=== PATIENT | female | born 1970 | race Caucasian/White ===

== ENCOUNTER 2017-04-27 09:03 | Emergency (ER) | payer MEDICAID ==
[~2017-04-27] VITALS: Ht 162.6 cm; Wt 95.0 kg
[~2017-04-27 09:03] MED LIST: AMO250C PO; ESOM20CA PO; LEVO125T69 PO; MOME17SP NS; ZOL50T PO
[2017-04-27 09:06] VITALS: BP 125/90
[2017-04-27] MEDS ORDERED: TETanus/Pertussis (Acell)/Diphther VAC/PF (Tdap-Adult) 0.5ml syringe IM ONE (10:15)
[2017-04-27] MEDS ORDERED: LIDOcaine 1% 30ml vial IJ ONE (10:15)
[2017-04-27] MEDS ORDERED: HYDROcodone/acetaminophen 5mg/325mg tablet PO ONE (10:20)
== END 2017-04-27 11:24 | disposition home or self-care (01) ==
LOC: ER 09:04
DX: S61.215A Laceration without foreign body of left ring finger without damage to nail, initial encounter (principal); Z79.899 Other long term (current) drug therapy; W23.0XXA Caught, crushed, jammed, or pinched between moving objects, initial encounter; Y93.89 Activity, other specified; Y92.89 Other specified places as the place of occurrence of the external cause; Y99.8 Other external cause status
CPT/HCPCS: 12001; 73140; 90471; 90715; 99284; A6255; A6449; J3490

== ENCOUNTER 2017-05-08 16:22 | Emergency (ER) | payer MEDICAID ==
[~2017-05-08] VITALS: Ht 165.1 cm; Wt 95.5 kg
[2017-05-08 17:09] VITALS: BP 145/69
== END 2017-05-08 17:11 | disposition home or self-care (01) ==
LOC: ER 16:23
DX: Z48.02 Encounter for removal of sutures (principal); Z79.899 Other long term (current) drug therapy
CPT/HCPCS: 99281

== ENCOUNTER 2019-07-22 02:53 | Emergency (ER) | payer MEDICAID ==
[~2019-07-22] VITALS: Ht 165.1 cm; Wt 75.0 kg
[~2019-07-22 02:53] MED LIST changes: +SERT-153 PO; -ZOL50T PO
[2019-07-22] MEDS ORDERED: normal saline 1000ML IV soln IVB ONE (03:00)
[2019-07-22] MEDS ORDERED: iohexol 300mg/ml 100ml inj. ONE (03:10)
[2019-07-22 03:35] LABS: BASOPHILS # (AUTO) 0.1 X10'3 (0-0.2); BASOPHILS % (AUTO) 1.2 % (0-1); EOSINOPHILS # (AUTO) 0.2 X10'3 (0-0.9); EOSINOPHILS % (AUTO) 2.2 % (0-6); HEMATOCRIT 38.6 % (35.0-45.0); HEMOGLOBIN 12.6 g/dl (12.0-16.0); LYMPHOCYTES # (AUTO) 1.9 X10'3 (1.1-4.8); MEAN CORPUSCULAR HEMOGLOBIN 30.3 PG (27.0-31.0); MEAN CORPUSCULAR HGB CONC 32.6 g/dL (33.0-36.5); MEAN PLATELET VOLUME 7.6 FL (7.4-10.4); MONOCYTES # (AUTO) 0.5 X10'3 (0-0.9); MONOCYTES % (AUTO) 6.7 % (2-12); NEUTROPHILS # (AUTO) 4.5 X10'3 (1.8-7.7); NEUTROPHILS % (AUTO) 62.9 % (42-75); PLATELET COUNT 232 X10'3 (140-440); RED BLOOD COUNT 4.15 X10'6 (4.20-5.60); WHITE BLOOD COUNT 7.1 X10'3 (4.5-11.0)
[2019-07-22 03:47] LABS: PARTIAL THROMBOPLASTIN TIME 30 SECONDS (22-32)
[2019-07-22 03:49] LABS: ALANINE AMINOTRANSFERASE 18 U/L (12-78); ALBUMIN 3.3 G/DL (3.4-5.0); ALBUMIN/GLOBULIN RATIO 0.9 (1.1-1.5); ALKALINE PHOSPHATASE 110 IU/L (46-116); ANION GAP 5 (8-16); ASPARTATE AMINO TRANSFERASE 20 U/L (10-37); BILIRUBIN,TOTAL 0.2 MG/DL (0.1-1.0); BLOOD UREA NITROGEN 22 MG/DL (7-18); BUN/CREATININE RATIO 20.2 (6.6-38.0); CALCIUM 8.3 MG/DL (8.5-10.1); CHLORIDE 107 MMOL/L (99-107); CREATININE 1.09 MG/DL (0.40-0.90); GLUCOSE 107 MG/DL (70-104); POTASSIUM 3.7 MMOL/L (3.5-5.1); SODIUM 141 MMOL/L (135-145); TOTAL CARBON DIOXIDE 29.1 MMOL/L (24-32); TOTAL PROTEIN 6.9 G/DL (6.4-8.2); eGFR 54 ML/MIN
[2019-07-22 03:51] LABS: URINE HCG NEGATIVE (NEG)
[2019-07-22] MEDS ORDERED: SULF1TAB49 PO (04:12)
[2019-07-22] MEDS ORDERED: CEPH-572 PO (04:12)
[2019-07-22] MEDS ORDERED: vancomycin/NS 1 GM ADD-VANTAGE 250 ML IV ONE (04:15)
[2019-07-22] MEDS ORDERED: CefTRIAXone 2gm/D5W 50ml 50 ML IV ONE (04:15)
[2019-07-22] MEDS ORDERED: TETanus/Pertussis (Acell)/Diphther VAC/PF (Tdap-Adult) 0.5ml syringe IMVAC ONE (04:15)
[2019-07-22 04:19] LABS: C-REACTIVE PROTEIN < 0.05 MG/DL (0.0-0.5)
[2019-07-22 05:49] VITALS: BP 120/90
== END 2019-07-22 06:37 | disposition home or self-care (01) ==
LOC: ER 02:54
DX: L03.114 Cellulitis of left upper limb (principal); N28.9 Disorder of kidney and ureter, unspecified; F15.10 Other stimulant abuse, uncomplicated; F41.9 Anxiety disorder, unspecified; F32.9 Major depressive disorder, single episode, unspecified; Z79.899 Other long term (current) drug therapy
CPT/HCPCS: 36415; 73201; 80053; 81025; 83605; 83735; 84145; 85025; 85610; 85730; 86140; 87040; 90471; 90715; 93005; 96365; 96375; 99285; J0696; J3370; J7030; Q9967

== ENCOUNTER 2020-10-27 20:46 | Emergency (ER) | payer MEDICAID ==
[~2020-10-27] VITALS: Ht 165.1 cm; Wt 80.0 kg
[2020-10-27 20:57] VITALS: BP 153/73
[2020-10-27] MEDS ORDERED: LIDOcaine 1% W/epiNEPHrine 1:200,000 10ml vial IJ ONE (23:00)
[2020-10-27] MEDS ORDERED: SULF1TAB49 PO (23:03)
[2020-10-27] MEDS ORDERED: CEPH250T PO (23:03)
[2020-10-27] MEDS ORDERED: LIDOcaine 1% W/epiNEPHrine 1:100,000 20ml vial IJ ONE (23:05)
== END 2020-10-27 23:59 | disposition home or self-care (01) ==
LOC: ER 20:46
DX: L02.01 Cutaneous abscess of face (principal); L73.1 Pseudofolliculitis barbae; F41.9 Anxiety disorder, unspecified; F32.9 Major depressive disorder, single episode, unspecified; F15.90 Other stimulant use, unspecified, uncomplicated; Z79.2 Long term (current) use of antibiotics; Z79.899 Other long term (current) drug therapy
CPT/HCPCS: 10060; 99283

== ENCOUNTER 2021-04-03 09:37 | Emergency (ER) | payer MEDICAID ==
[~2021-04-03] VITALS: Ht 152.4 cm; Wt 73.0 kg
[~2021-04-03 09:37] MED LIST changes: -MOME17SP NS; +MOME17SP5 NS
[2021-04-03 09:43] VITALS: BP 120/61
[2021-04-03 10:22] LABS: BASOPHILS # (AUTO) 0.1 X10'3 (0-0.2); BASOPHILS % (AUTO) 1.2 % (0-1); EOSINOPHILS # (AUTO) 0.2 X10'3 (0-0.9); EOSINOPHILS % (AUTO) 2.8 % (0-6); HEMATOCRIT 36.8 % (35.0-45.0); HEMOGLOBIN 12.2 g/dl (12.0-16.0); LYMPHOCYTES # (AUTO) 2.2 X10'3 (1.1-4.8); LYMPHOCYTES % (AUTO) 28.9 % (21-51); MEAN CORPUSCULAR HEMOGLOBIN 28.3 PG (27.0-31.0); MEAN CORPUSCULAR HGB CONC 33.2 g/dL (33.0-36.5); MEAN CORPUSCULAR VOLUME 85.3 FL (78-98); MEAN PLATELET VOLUME 7.8 FL (7.4-10.4); MONOCYTES # (AUTO) 0.5 X10'3 (0-0.9); MONOCYTES % (AUTO) 6.6 % (2-12); NEUTROPHILS # (AUTO) 4.5 X10'3 (1.8-7.7); NEUTROPHILS % (AUTO) 60.5 % (42-75); PLATELET COUNT 366 X10'3 (140-440); RED BLOOD COUNT 4.31 X10'6 (4.20-5.60); RED CELL DISTRIBUTION WIDTH 15.9 % (11.5-14.5); WHITE BLOOD COUNT 7.4 X10'3 (4.5-11.0)
[2021-04-03 10:41] LABS: ALANINE AMINOTRANSFERASE 21 U/L (12-78); ALBUMIN 3.1 G/DL (3.4-5.0); ALBUMIN/GLOBULIN RATIO 0.7 (1.1-1.5); ALKALINE PHOSPHATASE 105 IU/L (46-116); ANION GAP 11 (8-16); ASPARTATE AMINO TRANSFERASE 17 U/L (10-37); BILIRUBIN,TOTAL 0.2 MG/DL (0.1-1.0); BLOOD UREA NITROGEN 14 MG/DL (7-18); BUN/CREATININE RATIO 17.1 (6.6-38.0); CALCIUM 8.6 MG/DL (8.5-10.1); CHLORIDE 106 MMOL/L (99-107); CREATININE 0.82 MG/DL (0.40-0.90); GLUCOSE 129 MG/DL (70-104); POTASSIUM 3.5 MMOL/L (3.5-5.1); SODIUM 143 MMOL/L (135-145); TOTAL CARBON DIOXIDE 25.9 MMOL/L (24-32); TOTAL PROTEIN 7.3 G/DL (6.4-8.2); eGFR 74 ML/MIN
== END 2021-04-03 12:40 | disposition home or self-care (01) ==
LOC: ER 09:37
DX: F15.129 Other stimulant abuse with intoxication, unspecified (principal); R42 Dizziness and giddiness; F12.90 Cannabis use, unspecified, uncomplicated; F17.200 Nicotine dependence, unspecified, uncomplicated; F41.9 Anxiety disorder, unspecified; F32.9 Major depressive disorder, single episode, unspecified; Z79.899 Other long term (current) drug therapy
CPT/HCPCS: 36415; 80053; 84443; 84484; 85025; 93005; 99284

== ENCOUNTER 2022-01-20 17:39 | Emergency (ER) | payer MEDICAID ==
[~2022-01-20] VITALS: Ht 162.6 cm; Wt 79.0 kg
[2022-01-20] MEDS ORDERED: HYDROcodone/acetaminophen 5mg/325mg tablet PO ONE (19:10)
[2022-01-20] MEDS ORDERED: HYDR-3965 PO (19:43)
[2022-01-20] MEDS ORDERED: ONDA4TAB12 PO (19:43)
[2022-01-20 20:06] VITALS: BP 135/87
== END 2022-01-20 20:17 | disposition home or self-care (01) ==
LOC: ER 17:40
DX: S59.802A Other specified injuries of left elbow, initial encounter (principal); F41.9 Anxiety disorder, unspecified; F32.A Depression, unspecified; F12.10 Cannabis abuse, uncomplicated; F15.10 Other stimulant abuse, uncomplicated; E07.9 Disorder of thyroid, unspecified; Z79.899 Other long term (current) drug therapy; V49.9XXA Car occupant (driver) (passenger) injured in unspecified traffic accident, initial encounter; Y93.89 Activity, other specified; Y92.89 Other specified places as the place of occurrence of the external cause; Y99.8 Other external cause status
CPT/HCPCS: 29105; 73070; 99283; A4565; A6449

== ENCOUNTER 2022-04-14 13:32 | Emergency (ER) | payer MEDICAID ==
[~2022-04-14] VITALS: Ht 165.1 cm; Wt 77.7 kg
[~2022-04-14 13:32] MED LIST changes: +ONDA4TAB12 PO
[2022-04-14 14:17] VITALS: BP 133/77
[2022-04-14] MEDS ORDERED: NEOM10DR45 RIGHT EAR (15:32)
== END 2022-04-14 15:55 | disposition home or self-care (01) ==
LOC: ER 13:33
DX: T16.1XXA Foreign body in right ear, initial encounter (principal); S00.411A Abrasion of right ear, initial encounter; F12.90 Cannabis use, unspecified, uncomplicated; F15.20 Other stimulant dependence, uncomplicated; X58.XXXA Exposure to other specified factors, initial encounter; Y93.89 Activity, other specified; Y92.89 Other specified places as the place of occurrence of the external cause; Y99.8 Other external cause status
CPT/HCPCS: 69200; 99284

== ENCOUNTER 2023-01-17 20:30 | Emergency (ER) | payer MEDICAID ==
[~2023-01-17] VITALS: Ht 162.6 cm; Wt 79.5 kg
[~2023-01-17 20:30] MED LIST changes: +NEOM10DR45 RIGHT EAR
[2023-01-17 21:38] LABS: BILIRUBIN,URINE NEGATIVE (Neg); CLARITY,URINE SLIGHTLY CLOUDY (Clear); COLOR,URINE YELLOW (Yellow); GLUCOSE, URINE NEGATIVE (Neg); KETONES,URINE NEGATIVE (Neg); LEUKOCYTE ESTERASE ,URINE NEGATIVE (Neg); NITRITES, URINE NEGATIVE (Neg); OCCULT BLOOD,URINE MODERATE (Neg); PROTEIN,URINE NEGATIVE (Neg); UROBILINOGEN,URINE 0.2 E.U/dL (0.2-1.0)
[2023-01-17 21:42] LABS: UA COLLECTION TYPE URINAL
[2023-01-17 21:46] LABS: BACTERIA,URINE FEW /HPF (Neg); MUCUS STRANDS NONE SEEN /LPF (Neg); RBC,URINE 0-2 /HPF (0-2); SQUAMOUS EPITHELIAL CELL,UR FEW /LPF (FEW); WBC,URINE 0-4 /HPF (0-4)
[2023-01-17 21:50] LABS: TRANSITIONAL EPI CELLS,URINE FEW /HPF; YEAST FEW /HPF (NEGATIVE)
[2023-01-17 22:29] VITALS: BP 140/73; PULSE 81; RESP 16; TEMP 97.9; O2SAT 97
== END 2023-01-17 22:31 | disposition home or self-care (01) ==
LOC: ER 20:31
DX: Z11.3 Encounter for screening for infections with a predominantly sexual mode of transmission (principal); F12.90 Cannabis use, unspecified, uncomplicated; F15.90 Other stimulant use, unspecified, uncomplicated; Z79.2 Long term (current) use of antibiotics; Z79.899 Other long term (current) drug therapy
CPT/HCPCS: 81001; 87088; 99283

== ENCOUNTER 2024-03-20 06:16 | Emergency (ER) | payer MEDICAID ==
[~2024-03-20] VITALS: Ht 162.6 cm; Wt 75.0 kg
[~2024-03-20 06:16] MED LIST changes: +ONDA-243 PO; -ONDA4TAB12 PO
[2024-03-20 06:24] VITALS: TEMP 96.7
[2024-03-20] MEDS: diazepam 5mg tablet PO ONE (06:59)
[2024-03-20] MEDS: ketorolac trometh 30MG/ML vial 30 MG/ML VIAL IM ONE (07:00)
[2024-03-20] MEDS: diphenhydrAMINE 50 mg/ml inj IV ONE (08:09)
[2024-03-20] MEDS: metoclopramide 5 mg/ml inj IV ONE (08:09)
[2024-03-20] MEDS: normal saline 1000ml 1,000 ML IV ONE (08:10)
[2024-03-20 09:47] VITALS: BP 132/84; PULSE 75; RESP 16; O2SAT 100
== END 2024-03-20 09:49 | disposition home or self-care (01) ==
LOC: ER 06:17
DX: M43.6 Torticollis (principal); F41.9 Anxiety disorder, unspecified; F32.A Depression, unspecified; F12.90 Cannabis use, unspecified, uncomplicated; F15.90 Other stimulant use, unspecified, uncomplicated
CPT/HCPCS: 96361; 96372; 96374; 96375; 99284; J1200; J1885; J2765; J7030

== ENCOUNTER 2024-09-05 13:41 | Outpatient (CLI) | payer MEDICAID ==
--- NOTE | 2024-09-05 14:58 | RADIOLOGY REPORT ---
CLINICAL INDICATION: Left hip pain TECHNIQUE: 1 radiographic views of the pelvis and 2 views of the bilateral hips were obtained. Comparison: None FINDINGS/IMPRESSION: There is no evidence of acute fracture or dislocation. The visualized joint space is well maintained. The alignment is anatomical. There is no radiopaque foreign body.
== END 2024-09-05 23:59 | disposition home or self-care (01) ==
LOC: RAD 13:41
PROVIDERS: ATTEND Nurse Practitioner Family
DX: M25.552 Pain in left hip (principal)
CPT/HCPCS: 73522